=== PATIENT | female | born 1975 ===

== ENCOUNTER 2021-09-21 06:00 | Inpatient (IN) | payer OTHER ==
[~2021-09-21] VITALS: Ht 162.6 cm; Wt 57.6 kg
[2021-09-22] MEDS ORDERED: NAPR500T14 PO (09:02)
[2021-09-22] MEDS ORDERED: COLACE100 MG PO (09:02)
[2021-09-22] MEDS ORDERED: ULTRACET PO (09:03)
[2021-09-22] MEDS ORDERED: TANDEM PLUS CA1 EACH PO (09:04)
== END 2021-09-22 11:49 | disposition home or self-care (01) | DRG 741 ==
LOC: CIR.AMB 06:00 → OB/GYN 12:35 → O/R 12:35 → OB/GYN 13:06
PROVIDERS: Surgery; ADMIT Obstetrics & Gynecology; ATTEND Obstetrics & Gynecology
PROC: 0DNN4ZZ Release Sigmoid Colon, Percutaneous Endoscopic Approach (ICD-10-PCS; 2021-09-21)
PROC: 0UT94ZZ Resection of Uterus, Percutaneous Endoscopic Approach (ICD-10-PCS; principal; 2021-09-21 10:00)
PROC: 0UT74ZZ Resection of Bilateral Fallopian Tubes, Percutaneous Endoscopic Approach (ICD-10-PCS; 2021-09-21 10:00)
DX: D06.1 Carcinoma in situ of exocervix (principal); D25.1 Intramural leiomyoma of uterus; N73.6 Female pelvic peritoneal adhesions (postinfective); N99.4 Postprocedural pelvic peritoneal adhesions